=== PATIENT | female | born 2000 | race African-American/Black ===

== ENCOUNTER 2021-04-17 11:07 | Emergency (ER) | payer OTHER ==
[~2021-04-17] VITALS: Ht 170.2 cm; Wt 63.5 kg
[2021-04-17 11:13] VITALS: BP 118/79
[2021-04-17] MEDS ORDERED: ALBUTEROL2.5 MG/0.1 INH (11:16)
== END 2021-04-17 13:02 | disposition home or self-care (01) ==
LOC: ER 11:07
DX: S61.411A Laceration without foreign body of right hand, initial encounter (principal); Z79.51 Long term (current) use of inhaled steroids; W45.8XXA Other foreign body or object entering through skin, initial encounter; Y93.G1 Activity, food preparation and clean up; Y92.090 Kitchen in other non-institutional residence as the place of occurrence of the external cause; Y99.8 Other external cause status